=== PATIENT | male | born 2000 | race Caucasian/White ===

== ENCOUNTER 2022-03-06 16:52 | Emergency (ER) | payer OTHER ==
[2022-03-06 17:25] VITALS: BP 125/67; PULSE 76; RESP 17; TEMP 97.3; BMI 27.4
[2022-03-06] MEDS ORDERED: KETOROLAC TROMETHAMINE 30 MG/1 ML VIAL IM ONE (17:58)
[2022-03-06] MEDS ORDERED: KETOROLAC TROMETHAMINE 30 MG/1 ML VIAL ONE (18:03)
== END 2022-03-06 19:22 | disposition home or self-care (01) ==
LOC: JERFT 16:52
PROC: 3E0233Z Introduction of Anti-inflammatory into Muscle, Percutaneous Approach (ICD-10-PCS; principal; 2022-03-06)
DX: S90.01XA Contusion of right ankle, initial encounter (principal); W22.8XXA Striking against or struck by other objects, initial encounter
CPT/HCPCS: 73610-TC-RT-FY; 73630-TC-RT-FY; 99284-25